=== PATIENT | male | born 1950 | race Native Hawaiian/Other Pacific Islander ===

== ENCOUNTER 2021-09-20 07:10 | Outpatient (CLI) | payer OTHER ==
[2021-09-20 07:35] LABS: POTASSIUM 3.9 mmol/L (3.6-5.2)
== END 2021-09-20 20:16 | disposition home or self-care (01) ==
LOC: LABW 07:10
PROVIDERS: ATTEND Neurological Surgery
DX: Z01.818 Encounter for other preprocedural examination (principal); Z79.01 Long term (current) use of anticoagulants; G56.01 Carpal tunnel syndrome, right upper limb
CPT/HCPCS: 36415; 80048

== ENCOUNTER 2021-11-09 08:22 | Outpatient (CLI) | payer OTHER | END 2021-11-09 20:08 | disposition home or self-care (01) | LOC: US 08:22 | PROVIDERS: ATTEND Internal Medicine | DX: Z13.6 Encounter for screening for cardiovascular disorders (principal); Z12.2 Encounter for screening for malignant neoplasm of respiratory organs; Z87.891 Personal history of nicotine dependence; Z09 Encounter for follow-up examination after completed treatment for conditions other than malignant neoplasm ==

== ENCOUNTER 2022-01-23 10:12 | Outpatient (CLI) | payer OTHER | END 2022-01-23 19:42 | disposition home or self-care (01) | LOC: RAD 10:12 | PROVIDERS: ATTEND Internal Medicine | DX: R06.02 Shortness of breath (principal) ==